=== PATIENT | female | born 1975 | race American Indian/Alaskan Native ===

== ENCOUNTER 2018-05-11 17:58 | Emergency (ER) | payer OTHER ==
[2018-05-11 18:30] VITALS: BMI 25.2
[2018-05-11 18:31] VITALS: RESP 18; TEMP 98.5
[2018-05-11 20:04] VITALS: BP 136/92; PULSE 85
[2018-05-11 20:06] LABS: ALB/GLOB RATIO 1.5 (1.1-1.8); ALBUMIN 4.8 g/dL (3.0-4.8); ALT/SGPT 18 U/L (7-56); AST/SGOT 21 U/L (14-36); BLOOD UREA NITROGEN 10 mg/dL (7-21); CALCIUM 9.6 mg/dL (8.4-10.5); GFR NON-AFRICAN AMERICAN > 60
[2018-05-11 20:15] LABS: BASO # 0.04 K/mm3 (0.0-2.0); BASO % 0.5 % (0.0-3.0); EOS # 0.2 (0.0-0.7); EOS % 2.6 % (1.5-5.0); GRAN # 4.03 (1.4-6.5); GRAN % 55.3 % (50.0-68.0); HEMOGLOBIN 11.9 g/dL (12.0-16.0); LYMPH # 2.5 (1.2-3.4); LYMPH % 34.2 % (22.0-35.0); MEAN CELL VOLUME 90.9 fl (80.0-105.0); MEAN CORPUSCULAR HEMOGLOBIN 29.2 pg (25.0-35.0); MEAN CORPUSCULAR HGB CONC 32.1 g/dl (31.0-37.0); MEAN PLATELET VOLUME 10.7 fl (7.0-11.0); MONO # 0.5 (0.1-0.6); MONO % 7.4 % (1.0-6.0); RBC 4.08 10^6/uL (3.5-6.1); RED CELL DISTRIBUTION WIDTH 12.8 % (11.5-14.5); WHITE BLOOD COUNT 7.3 10^3/uL (4.5-11.0)
[2018-05-11 20:17] LABS: TROPONIN I < 0.01 ng/mL
[2018-05-11 20:18] LABS: INR 1.08; PARTIAL THROMBOPLASTIN TIME 34.4 Seconds (25.1-36.5); PROTHROMBIN TIME 12.3 SECONDS (9.4-12.5)
--- NOTE | 2018-05-11 21:00 | ED PDOC ---
Arrival/HPI - General Chief Complaint: Headache Time Seen by Provider: 05/11/18 18:50 Historian: Patient - History of Present Illness Narrative History of Present Illness (Text): 05/12/18 01:40 42yo female with pmhx of hypertension who present with complaint of hypertension and headache. States she has been having headache for 3days now. states her BP was 160/100 while at her [employer] earlier today and it was monitored there, but it remain elevated and was referred to ED. States her BP has been elevated for weeks now and her PMD told her to start taking 10mg of Amlodipine, instead of 5mg that she takes. States she ran out of her Amlodipine and she plan to start taking 10mg when she picks it up. Notes that she did not take any antihypertensive today. For her headache she notes improvement with Aleve 3days ago when she took it. she did not take any analgesic for the headache. She denies photophobia, nausea, vomiting, focal weakness, visual changes, neck pain, trauma, focal weakness, fever, chills, any other complaint. Past Medical History - Provider Review Nursing Documentation Reviewed: Yes - Past History Past History: No Previous - Infectious Disease Hx of Infectious Diseases: None - Tetanus Immunization Tetanus Immunization: Unknown - Past Medical History Past Medical History: No Previous - Cardiac Hx Cardiac Disorders: Yes Hx Hypertension: Yes - Pulmonary Hx Respiratory Disorders: No - Neurological Hx Neurological Disorder: No - HEENT Hx HEENT Disorder: No - Renal Hx Renal Disorder: No - Endocrine/Metabolic Hx Endocrine Disorders: No - Hematological/Oncological Hx Blood Disorders: No - Integumentary Hx Dermatological Disorder: No - Musculoskeletal/Rheumatological Hx Musculoskeletal Disorders: No - Gastrointestinal Hx Gastrointestinal Disorders: No - Genitourinary/Gynecological Hx Genitourinary Disorders: No - Psychiatric Hx Psychophysiologic Disorder: No Hx Substance Use: No - Past Surgical History Past Surgical History: No Previous - Suicidal Assessment Feels Threatened In Home Enviroment: No Family/Social History - Physician Review Nursing Documentation Reviewed: Yes Family/Social History: Unknown Family HX Smoking Status: Light Smoker < 10 Cigarettes Daily Hx Alcohol Use: Yes Hx Substance Use: No Hx Substance Use Treatment: No Allergies/Home Meds Allergies/Adverse Reactions: Allergies No Known Allergies Allergy (Verified 05/11/18 18:31) Home Medications: Home Meds Medication Instructions Recorded Confirmed RX: amLODIPine [Norvasc] 5 mg PO DAILY 05/11/18 05/11/18 Review of Systems - Physician Review All systems were reviewed & negative as marked: Yes - Review of Systems Constitutional: Other (Elevated BP) Eyes: Normal ENT: Normal Respiratory: Normal Cardiovascular: Normal Gastrointestinal: Normal Genitourinary Female: Normal Musculoskeletal: Normal Skin: Normal Neurological: Headache Endocrine: Normal Hemo/Lymphatic: Normal Psychiatric: Normal Physical Exam Vital Signs Reviewed: Yes Vital Signs Temp Pulse Resp BP Pulse Ox 05/11/18 20:04 85 136/92 H 05/11/18 19:42 163/103 H 05/11/18 18:30 98.5 F 84 18 163/103 H 96 Temperature: Afebrile Blood Pressure: Hypertensive Pulse: Regular Respiratory Rate: Normal Appearance: Positive for: Well-Appearing, Non-Toxic, Comfortable Pain Distress: None Mental Status: Positive for: Alert and Oriented X 3 - Systems Exam Head: Present: Atraumatic, Normocephalic Pupils: Present: PERRL Extroacular Muscles: Present: EOMI Conjunctiva: Present: Normal Mouth: Present: Moist Mucous Membranes Neck: Present: Normal Range of Motion Respiratory/Chest: Present: Clear to Auscultation, Good Air Exchange. No: Respiratory Distress, Accessory Muscle Use Cardiovascular: Present: Regular Rate and Rhythm, Normal S1, S2. No: Murmurs Abdomen: No: Tenderness, Distention, Peritoneal Signs Back: Present: Normal Inspection Upper Extremity: Present: Normal Inspection. No: Cyanosis, Edema Lower Extremity: Present: Normal Inspection. No: Edema Neurological: Present: GCS=15, CN II-XII Intact, Speech Normal, Motor Func Grossly Intact, Normal Sensory Function, Normal Cerebellar Funct, Norm Deep Tendon Reflexes, Gait Normal, Memory Normal, Other (No focal neurological deficit) Skin: Present: Warm, Dry, Normal Color. No: Rashes Psychiatric: Present: Alert, Oriented x 3, Normal Insight, Normal Concentration Medical Decision Making ED Course and Treatment: 05/11/18 20:43 Pt present to ED for stated history. Labs Head CT Norvasc 10mg Reglan 10mg Pt's lab was unremarkable. She noted improvement of her headache in ED and her BP improved with medication in ED. Her neck was supple. Hemodynamically stable. She requested to sign out AMA. She declined headache. she verbalized understanding of the risk of having internal head derangement leading to permanent disability and even . She states she understood all these risk and still requested to sign out AMA. States she feels better and will machine pecan picker her BP medication tomorrow. She was neurologically intact , AAO x3 in ED and have the full mentation to make this decision She signed out AMA and was advised to return to ED at anytime she changes her mind. - Lab Interpretations Lab Results: 05/11/18 19:51 05/11/18 19:51 Lab Results 05/11/18 19:51: Sodium 142, Potassium 3.5 L, Chloride 104, Carbon Dioxide 29, Anion Gap 12, BUN 10, Creatinine 0.7, Est GFR ( Amer) > 60, Est GFR (Non- Af Amer) > 60, Random Glucose 81, Calcium 9.6, Total Bilirubin 0.4, AST 21, ALT 18, Alkaline Phosphatase 73, Lactate Dehydrogenase 396, Total Creatine Kinase 59, Troponin I < 0.01, Total Protein 8.1, Albumin 4.8, Globulin 3.3, Albumin /Globulin Ratio 1.5 05/11/18 19:51: PT 12.3, INR 1.08, APTT 34.4 05/11/18 19:51: WBC 7.3, RBC 4.08, Hgb 11.9 L, Hct 37.1, MCV 90.9, MCH 29.2, MCHC 32.1, RDW 12.8, Plt Count 262, MPV 10.7, Gran % 55.3, Lymph % (Auto) 34.2, [place] % (Auto) 7.4 H, Eos % (Auto) 2.6, Baso % (Auto) 0.5, Gran # 4.03, Lymph # (Auto) 2.5, [place] # (Auto) 0.5, Eos # (Auto) 0.2, Baso # (Auto) 0.04 - RAD Interpretation Radiology Orders: 05/11/18 19:00 HEAD W/O CONTRAST [CT] Stat - Medication Orders Current Medication Orders: Discontinued Medications Acetaminophen (Tylenol 325mg Tab) 650 mg PO STAT STA Stop: 05/11/18 19:04 Last Admin: 05/11/18 19:43 Dose: 650 mg Amlodipine Besylate (Norvasc) 10 mg PO STAT STA Stop: 05/11/18 19:04 Last Admin: 05/11/18 19:42 Dose: 10 mg MAR Blood Pressure Document 05/11/18 19:42 AD (Rec: 05/11/18 19:43 AD [facility] [place] Blood Pressure Blood Pressure (100/60-150/90 mm Hg) 163/103 Metoclopramide HCl (Reglan) 10 mg IVP STAT STA Stop: 05/11/18 19:04 Last Admin: 05/11/18 19:43 Dose: 10 mg IVP Administration Document 05/11/18 19:43 AD (Rec: 05/11/18 19:43 AD [facility] [id number]) Charges for Administration # of IVP Administrations 1 Disposition/Present on Arrival - Present on Arrival Any Indicators Present on Arrival: No History of DVT/PE: No History of Uncontrolled Diabetes: No Urinary Catheter: No History of Decub. Ulcer: No History Surgical Site Infection Following: None - Disposition Have Diagnosis and Disposition been Completed?: Yes Diagnosis: Hypertension, Headache Disposition: AGAINST MEDICAL ADVICE Disposition Time: 20:25 Patient Problems: Current Active Problems Problem Status Onset Headache Acute Hypertension Acute Condition: FAIR Forms: [employer] ([place])
[2018-05-12 02:47] VITALS: O2SAT 100
== END 2018-05-11 20:30 | disposition left against medical advice (07) ==
LOC: ED 17:58
DX: I10 Essential (primary) hypertension (principal); R51 Headache; F17.210 Nicotine dependence, cigarettes, uncomplicated
CPT/HCPCS: 80053; 82550; 83615; 84484; 85025; 85610; 85730; 96374; 99285; J2765